=== PATIENT | female | born 1955 | race Caucasian/White ===

== ENCOUNTER → 2017-11-25 | Outpatient (CLI) | payer OTHER | END | disposition home or self-care (01) | LOC: PCVCIMAG 15:13 | DX: I10 Essential (primary) hypertension (principal); R07.89 Other chest pain; E78.5 Hyperlipidemia, unspecified; G47.33 Obstructive sleep apnea (adult) (pediatric) | CPT/HCPCS: 93325; 93351 ==

== ENCOUNTER → 2018-07-01 | Outpatient (CLI) | payer OTHER ==
[~2018-07-01] MED LIST: DIAZEPAM 10 MG TABLET. ONE; FAMOTIDINE 20 MG/2 ML VIAL ONE; IOHEXOL 350 MG/ML 100 ML VIAL. ONE; IOHEXOL 350 MG/ML 50 ML VIAL. ONE; IV NORMAL SALINE 500ML BAG 500 ML ONE; LIDOCAINE 1% Multi-Dose 50 ML VIAL. ONE; MIDAZOLAM HCL/PF 2 MG/2 ML VIAL. ONE; diphenhydrAMINE 50 MG/ML VIAL ONE; fentaNYL PF VIAL 100 MCG/2 ML VIAL ONE; methylPREDNISolone SOD SUCC PF 125 MG/2 ML VIAL. ONE
--- NOTE | 2018-07-01 13:04 | PCVCINTER ---
APPROVED REPORT Study performed: 07/01/2018 11:59:38 Patient Details Patient Status: Out-Patient Room #: 3 The patient is a 62 year-old Female Event Personnel Kamila Leyva MD, Alfredo Alav RT(R), Missy Mantilla RT(R)(), Santa Spencer RN Risk Factors Arterial HypertensionDysplipidemia (Type: 1), Hypercholesterolemia, Last Creatanine 0.7Tobacco History (Never) Procedure Narrative A 6F sheath was inserted into the right femoral artery. Coronary angiography was performed using coronary diagnostic catheters. The right coronary system was accessed and visualized with a JR4 catheter. The left coronary system was accessed and visualized with a JL4 catheter. The left ventricle was accessed and visualized with a Angled Pigtail catheter. Left ventricular/Aortic Valve gradient assessed via catheter pullback. Left ventriculogram was performed in MCKEON projection. Closure device was deployed with a 6 Fr Mynx. The patient tolerated the procedure well and there were no complications associated with the procedure. There was no hematoma. Coronary Angiography The patient's coronary anatomy is right dominant. Diagnostic Cath Left MainNormal left main LADNormal left anterior descending CircumflexLarge circumflex comprised of a single marginal branch [id number] normal marginal branch Right CoronaryDominant right coronary, angiographically normal. Left Ventriculography The left ventricle is normal in size with normal contractility. The left ventricular ejection fraction is estimated to be 60-65%. Left ventricular wall motion abnormalities are not present. There is 1+ mitral insufficiency. Hemodynamics The aortic pressure is 144/59 mmHg with a mean of 93 mmHg. The left ventricular pressure is 131/2 mmHg with a mean of 10 mmHg. Conclusion 1. Normal global and regional left ventricular systolic function. Ejection fraction 60-65%. 2. Normal left main 3. Normal coronary vasculature. Right coronary dominant circulation Recommendations Aggressive Medical Therapy
== END | disposition home or self-care (01) ==
LOC: PCVCINTER 11:19
PROVIDERS: ATTEND Internal Medicine
DX: I20.9 Angina pectoris, unspecified (principal); I10 Essential (primary) hypertension; I49.3 Ventricular premature depolarization; G47.33 Obstructive sleep apnea (adult) (pediatric); E06.3 Autoimmune thyroiditis; Z90.710 Acquired absence of both cervix and uterus; Z98.890 Other specified postprocedural states; Z82.49 Family history of ischemic heart disease and other diseases of the circulatory system; Z82.3 Family history of stroke; Z72.89 Other problems related to lifestyle; Z88.8 Allergy status to other drugs, medicaments and biological substances; E78.5 Hyperlipidemia, unspecified; Z79.899 Other long term (current) drug therapy
CPT/HCPCS: 93458; C1760; C1769; C1894; J1200; J1644; J2250; J2930; J3010; J3490; J7040; Q9967